=== PATIENT | male | born 1990 | race Caucasian/White ===

== ENCOUNTER 2024-10-20 16:15 | Emergency (ER) | payer OTHER, SELFPAY ==
[2024-10-20 16:24] VITALS: BP 129/74
[2024-10-20 19:53] VITALS: BMI 24.1
--- NOTE | 2024-10-20 20:39 | ED.GENMED ---
History of Present Illness
General
Chief Complaint: Musculo-Skeletal Complaint
Source: patient and family
Exam Limitations: none
Time Seen by Provider: 10/20/24 19:10
Nursing documentation reviewed up to this point in time: agreed with
History of Present Illness
History of Present Illness:
34-year-old male presenting to the emergency department with concerns of discomfort to his left fifth toe hitting this on luggage earlier today. Difficulty walking secondary to pain since. Denies numbness weakness or additional injuries. No
breaks in the skin.
Past History
Past History
ED Past Medical History: None
ED Past Surgical History: None
Social History
Tobacco: Non-smoker
Alcohol: Occasional
Personal:
Living: with family
Review of Systems
Review of Systems
Allergies reviewed?: Yes
All Other Systems: ROS reviewed and negative except as documented in HPI and ROS
Phy Exam
Physical Exam
Physical Exam:
GENERAL: Alert , in no apparent distress
EYE: pupils equal and reactive
NECK: Supple, no significant adenopathy.
ENT: o/p clr, mmm.
CARDIAC: Regular rate and rhythm .
LUNGS: Clear breath sounds bilaterally, no acute respiratory distress, no wheezes/rales/rhonchi
ABDOMEN: Soft, without focal tenderness, no r/g, no cvat
NEUROLOGICAL: Alert and oriented, no focal neuro deficits
SKIN: Warm and dry, skin intact.
MUSCULOSKELETAL: Discomfort and swelling to the left pinky toe, well perfused.
PSYCH: Normal and appropriate interaction.
Course
Orders/Labs/Results
Orders:
Orders
10/20/24 16:26
CR Toe(s) Min 2 Vw Left Urgent
Comment:
Reason For Exam: jammed toe
Indicate Which Toe:: Fifth
10/20/24 20:11
Cast Shoe Left-Treatment ONCE
Vital Signs
Initial and Last Documented VS:
Initial Vital Signs
Temp Pulse Resp BP Pulse Ox
97.9 F 74 16 129/74 100
10/20/24 16:24 10/20/24 16:24 10/20/24 16:24 10/20/24 16:24 10/20/24 16:24
Last Documented Vital Signs
Temp Pulse Resp BP Pulse Ox
97.9 F 74 16 129/74 98
10/20/24 16:24 10/20/24 16:24 10/20/24 16:24 10/20/24 16:24 10/20/24 19:53
MDM/Problems Addressed
MDM/Problems Addressed:
34-year-old male presenting to the emergency department today with concerns of left fifth toe swelling after hitting the toe. Appears to be a sprain x-ray without signs of fracture advised to dominga tape and given a hard soled shoe. Also given
information for follow-up as needed. Return precautions given.
*Critical Care Note
Total Time (30-74mins, 75-104mins- exclusive of procedures): Not Applicable
ED Attending Note
-
Portions of this chart may have been created with voice recognition software.� Occasional wrong word or��sound alike� substitutions may have occurred due to the inherent limitations of voice recognition software.
Discharge Plan
Departure
Patient Disposition: Home (Routine Discharge)
Date of Disposition: 10/20/24
Time of Disposition: 20:39
Patient with high blood pressure during this ER visit?: No
Condition: Good
Covid-19: Not Applicable
Discharge Problem:
Sprain of toe
Instructions: Sprain (DC)
Prescriptions:
No Action
hydrocodone-acetaminophen 5 MG/500 MG tablet
1 tab PO Q4HPRN PRN (Reason: PAIN) Qty: 30 0RF
acetaminophen-codeine 12 MG/5 ML solution
10 ml PO Q4HPRN PRN (Reason: pain) Qty: 120 0RF
Rx Instructions:
120 mg and 12 mg/5 ml
Referrals:
Sweetie Jasso MD [Family Provider] -
Pop Jacob DPM [Active] - Follow up in 10 days
Activity Restrictions/Additional Instructions:
You came to the emergency department today with concerns of a toe injury. Please rest ice compress and elevate and follow-up with the foot doctor as needed. Return to the emergency department any worsening, new or concerning symptoms.
Interventions
Interventions:
*Risk Screen - Suicide Last Done: 10/20/24 16:24
*General Assessment Last Done: 10/20/24 16:24
*Neglect/Abuse Screening Last Done: 10/20/24 16:24
ED- Fall Risk Assessment Last Done: 10/20/24 19:53
*ED COVID-19 Vaccine History Last Done: 10/20/24 16:24
*Nursing Disposition Last Done: 10/20/24 20:48
ED-Musculoskeletal Assessment Last Done: 10/20/24 19:53
Discharge Date and Time
Discharge Date/Time: 10/20/24 20:48
Print Language: AZERI
== END 2024-10-20 20:48 | disposition home or self-care (01) ==
LOC: EMR 16:15
PROVIDERS: EMERGENCY PHYSICIAN Emergency Medicine; FAMILY PHYSICIAN Internal Medicine
DX: S93.505A Unspecified sprain of left lesser toe(s), initial encounter (principal); W22.8XXA Striking against or struck by other objects, initial encounter
CPT/HCPCS: 99283; 73660